=== PATIENT | female | born 1955 | race Caucasian/White ===

== ENCOUNTER 2024-10-16 07:12 | Day surgery (SDC) | payer MEDICARE, BC ==
[~2024-10-16 07:12] MED LIST: Lactated Ringers 1,000 ML IV SCH
[2024-10-16] MEDS: Lactated Ringers 1,000 ML IV SCH (07:24)
[2024-10-16] MEDS ORDERED: fentaNYL 100 MCG/2 ML SDV ONE (08:18)
[2024-10-16] MEDS ORDERED: Propofol 200 MG/20 ML SDV ONE (08:19)
== END 2024-10-16 09:25 | disposition home or self-care (01) ==
LOC: VM.SDS 07:12
PROVIDERS: ATTEND Family Medicine
DX: Z12.11 Encounter for screening for malignant neoplasm of colon (principal); D12.0 Benign neoplasm of cecum; K63.5 Polyp of colon; Z88.0 Allergy status to penicillin; Z79.899 Other long term (current) drug therapy
CPT/HCPCS: 00811; 88305; J2704; J3010; J7120